=== PATIENT | male | born 1945 | race Caucasian/White ===

== ENCOUNTER 2016-09-24 20:59 | Emergency (ER) | payer OTHER ==
[~2016-09-24] VITALS: Ht 180.3 cm; Wt 86.2 kg
[~2016-09-24 20:59] MED LIST: 'TENORMIN50 MG; ALDACTONE PO; ALDACTONE25 M1 PO; ALDACTONE25 MG PO; ASPIRIN81 M1 PO; ATENOLOL100 MG PO; ATENOLOL25 MG PO; BUMETANIDE2 MG PO; BUMEX1 MG PO; BUSPIRONE HCL10 MG PO; BUSPIRONE HCL5 MG PO; BUSPIRONE5 MG PO; CHLOR-A-TAB4 MG PO; CLOPIDOGREL75 MG PO; CYCLOBENZAPRINE10 MG PO; DIABETA5 MG PO; FLEXERIL10 MG PO; GLUCOTROL5 MG PO; GLYBURIDE5 MG PO; ISOSORBIDE30 MG PO; KEPPRA500 MG; KEPPRA500 MG PO; LISINOPRIL5 MG PO; Lortab 5/500 501 TAB PO; METFORMIN ER500 MG; METFORMIN HCL1000 MG PO; METFORMIN HCL500 MG PO; METFORMIN500 MG PO; MIRTAZAPINE15 MG PO; MIRTAZAPINE30 M1; NITROGLYCERIN0.4 MG; OMEPRAZOLE DR20 M1 PO; PLAVIX75 MG PO; PRAVASTATIN SOD40 MG PO; PROCHLORPERAZIN10 MG PO; RANEXA500 MG PO; SIMVASTATIN80 MG PO; TRAMADOL HCL50 MG PO; TRAMADOL HYDROC50 MG PO; TRAZADONE HYDR100 MG PO; VICODIN 5/500 505 MG PO; ZOCOR80 MG PO
[2016-09-24] MEDS ORDERED: GLIPIZIDE10 M2 PO (21:21)
[2016-09-24] MEDS ORDERED: PRAVACHOL80 M1 PO (21:22)
[2016-09-24] MEDS ORDERED: TORSEMIDE20 MG PO (21:23)
[2016-09-24] MEDS ORDERED: METFORMIN1000 MG PO (21:23)
[2016-09-24] MEDS ORDERED: ZOLOFT25 MG PO (21:24)
[2016-09-24] MEDS ORDERED: HYDROXYZINE PAM50 MG PO (21:25)
[2016-09-24] MEDS ORDERED: ATENOLOL25 MG PO (21:26)
== END 2016-09-24 23:16 | disposition home or self-care (01) ==
LOC: ED 20:59
DX: S41.111A Laceration without foreign body of right upper arm, initial encounter (principal); R07.81 Pleurodynia; Z91.013 Allergy to seafood; Z91.041 Radiographic dye allergy status; Z88.6 Allergy status to analgesic agent; Z88.8 Allergy status to other drugs, medicaments and biological substances; Z79.899 Other long term (current) drug therapy; W01.0XXA Fall on same level from slipping, tripping and stumbling without subsequent striking against object, initial encounter; Y93.89 Activity, other specified; Y92.122 Bedroom in nursing home as the place of occurrence of the external cause; Y99.9 Unspecified external cause status

== ENCOUNTER 2017-01-24 09:36 | Inpatient (IN) | payer OTHER ==
[~2017-01-24] VITALS: Ht 175.2 cm; Wt 58.1 kg
--- NOTE | ~2017-01-24 | EKG ---
[place], [place] ELECTROCARDIOGRAM REPORT NAME: ZURDO MELO UNIT #: [id number] ROOM: [place] [id number] DOCTOR: LIZABETH WATSON,DAVI BIRTHDATE: [birth year] DOS: 01/26/2017 TIME: 0643 hours. Supraventricular tachycardia at 110 beats per minute. P waves are not discernible. There is incomplete left bundle branch block. Mild ST segment depression with T wave abnormality in V4-V6 and inverted T wave in 1 at aVL is suggestive of anterolateral wall ischemia. No previous tracing is available for comparison. DAVI BARONE MD CM:EKGRPT:ELECTROCARDIOGRAM REPORT [id number] DAVI BARONE MD
--- NOTE | ~2017-01-24 | EKG ---
[place], [place] ELECTROCARDIOGRAM REPORT NAME: ZURDO MELO UNIT #: [id number] ROOM: [id number] DOCTOR: DAVI BARONE MD BIRTHDATE: [birth year] DOS: 01/24/2017 TIME: 1007 hours. Normal sinus rhythm at 61 beats per minute. The tracing is within normal limits. No previous tracing is available for comparison. DAVI BARONE MD CM:EKGRPT:ELECTROCARDIOGRAM REPORT [id number] DAVI BARONE MD
[~2017-01-24 09:36] MED LIST changes: +GLIPIZIDE10 M2 PO; +HYDROXYZINE PAM50 MG PO; +METFORMIN1000 MG PO; +PRAVACHOL80 M1 PO; +TORSEMIDE20 MG PO; +ZOLOFT25 MG PO
[2017-01-24 09:54] VITALS: BP 100/60
[2017-01-24 10:03] LABS: BILIRUBIN NEGATIVE (NEGATIVE); BLOOD NEGATIVE (NEGATIVE); CLARITY CLEAR (CLEAR); COLOR YELLOW (YELLOW); GLUCOSE NEGATIVE (NEGATIVE); KETONE NEGATIVE (NEGATIVE); LEUKO ESTERASE NEGATIVE (NEGATIVE); NITRITE NEGATIVE (NEGATIVE); PH 5.5 (5.0-9.0); PROTEIN NEGATIVE (NEGATIVE); UROBILINOGEN 0.2 E.U./dl (0.2-1.0)
[2017-01-24 10:11] LABS: BASO # 0.1 10*3/uL (0.0-0.1); BASO % 0.6 % (0.0-1.0); EOS # 0.1 10*3/uL (0.0-0.4); EOS % 0.9 % (1.0-4.0); HEMATOCRIT 36.8 % (42.0-52.0); LYMPH # 1.8 10*3/uL (1.3-4.4); LYMPH % 17.2 % (27.0-41.0); MEAN CORPUSCULAR HGB CONC 32.6 g/dl (33.0-37.0); MEAN PLATELET VOLUME 9.5 fl (9.6-12.3); MONO # 0.7 10*3/uL (0.1-1.0); NEUT # 7.9 10*3/uL (2.3-7.9); PLATELET COUNT AUTOMATED 240 10*3/uL (130-400); RED CELL DISTRI WIDTH 14.4 % (0-14.5); WHITE BLOOD COUNT 10.6 10*3/uL (4.8-10.8)
[2017-01-24 10:17] LABS: RBC 0-2 rbc/hpf (0-2); URINE REFLEX COMMENT NO (NO); WBC 0-2 wbc/hpf (0-5)
[2017-01-24 10:26] LABS: INTERNATIONAL NORM RATIO 1.1 (2.0-3.5); PROTHROMBIN TIME 11.3 SECONDS (9.0-12.4)
[2017-01-24 10:33] LABS: ALBUMIN 3.9 gm/dl (3.1-4.5); ALKALINE PHOSPHATASE 95 U/L (45-117); BILIRUBIN, TOTAL 0.5 mg/dl (0.2-1.0); BUN 20 mg/dl (7-24); CARBON DIOXIDE 28 mmol/L (21-32); CHLORIDE 102 mmol/L (98-107); CKMB 1.8 ng/ml (0.5-3.6); CPK 115 U/L (39-308); EST GLOM FILT AFRICAN AMERICAN 51 ml/min; GLUCOSE 64 mg/dL (65-99); SGOT/AST 39 IU/L (3-35); SGPT/ALT 30 U/L (12-78); SODIUM 140 mmol/L (136-145); TOTAL PROTEIN 7.5 gm/dL (6.4-8.2)
[2017-01-24 10:34] LABS: TROPONIN I < 0.015 ng/ml (<0.045)
[2017-01-24 11:20] VITALS: BP 136/70
[2017-01-24 12:21] VITALS: BP 123/65
[2017-01-24] MEDS ORDERED: KEPPRA1000 MG PO (12:51)
[2017-01-24] MEDS ORDERED: TORSEMIDE20 MG PO (12:54)
[2017-01-24 16:00] VITALS: BP 96/40
[2017-01-24 20:00] VITALS: BP 123/72
[2017-01-25] VITALS: BP 127/77
[2017-01-25 06:43] LABS: BASO % 0.4 % (0.0-1.0); EOS # 0.1 10*3/uL (0.0-0.4); EOS % 0.7 % (1.0-4.0); HEMATOCRIT 37.5 % (42.0-52.0); HEMOGLOBIN 11.9 g/dl (14.0-18.0); LYMPH # 1.3 10*3/uL (1.3-4.4); LYMPH % 11.3 % (27.0-41.0); MEAN CORPUSCULAR HGB 30.4 pg (27.0-31.0); MEAN CORPUSCULAR HGB CONC 31.7 g/dl (33.0-37.0); MEAN PLATELET VOLUME 9.9 fl (9.6-12.3); MONO # 0.6 10*3/uL (0.1-1.0); MONO % 5.8 % (3.0-9.0); NEUT # 9.1 10*3/uL (2.3-7.9); NEUT % 81.4 % (47.0-73.0); PLATELET COUNT AUTOMATED 200 10*3/uL (130-400); RED BLOOD COUNT 3.91 10*6/uL (4.50-5.90); RED CELL DISTRI WIDTH 14.6 % (0-14.5); WHITE BLOOD COUNT 11.1 10*3/uL (4.8-10.8)
[2017-01-25 06:58] LABS: MEAN CELL VOLUME 95.9 fl (80.0-94.0)
[2017-01-25 07:12] LABS: ALBUMIN 3.6 gm/dl (3.1-4.5); BILIRUBIN, TOTAL 0.7 mg/dl (0.2-1.0); FREE T4 0.96 ng/dl (0.76-1.46); PHOSPHOROUS 4.5 mg/dL (2.5-4.9); POTASSIUM 4.6 mmol/L (3.5-5.1); TOTAL PROTEIN 7.6 gm/dL (6.4-8.2)
[2017-01-25 07:17] LABS: THYROID STIM HORMONE (HS) 2.7 uIU/ml (0.358-4.75)
[2017-01-25 07:20] LABS: VITAMIN D, 25-HYDROXY 17.8 ng/mL (30-100)
[2017-01-25 07:21] LABS: FOLIC ACID 15.02 ng/mL (>5.38)
[2017-01-25 08:00] VITALS: BP 106/56
[2017-01-25 12:00] VITALS: BP 118/83
[2017-01-25 16:00] VITALS: BP 103/60
[2017-01-25 20:00] VITALS: BP 92/57
[2017-01-26] VITALS (8 sets, daily range): BP systolic 56–114; BP diastolic 27–85
[2017-01-26 06:23] LABS: POTASSIUM 5.4 mmol/L (3.5-5.1)
[2017-01-26 06:24] LABS: HEMATOCRIT 38.7 % (42.0-52.0); HEMOGLOBIN 11.2 g/dl (14.0-18.0); MEAN CELL VOLUME 105.7 fl (80.0-94.0); MEAN CORPUSCULAR HGB 30.6 pg (27.0-31.0); MEAN CORPUSCULAR HGB CONC 28.9 g/dl (33.0-37.0); MEAN PLATELET VOLUME 10.1 fl (9.6-12.3); PLATELET COUNT AUTOMATED 362 10*3/uL (130-400); RED BLOOD COUNT 3.66 10*6/uL (4.50-5.90); WHITE BLOOD COUNT 26.8 10*3/uL (4.8-10.8)
[2017-01-26 06:52] LABS: HEMOGLOBIN A1c 5.8 % (4.8-5.6)
[2017-01-26 07:14] LABS: BURR CELLS MODERATE; LYMPHOCYTE # 1.1 10*3/uL (1.3-4.4); METAMYELOCYTES 2 % (0-0); MONOCYTE # 1.1 10*3/uL (0.1-1.0); NEUTROPHIL # 24.1 10*3/uL (2.3-7.9); NEUTROPHILS 90 % (47-73); PLATELET SUFFICIENCY NORMAL (NORMAL); ROULEAUX SLIGHT; TOTAL CELLS COUNTED 100 #CELLS
== END 2017-01-26 08:55 | disposition expired ==
LOC: ED 09:36 → 4E 11:10 → EDHOLD 11:10 → 4E 11:48 → ICCU 01-26 07:34
PROVIDERS: Emergency Medicine; Student in an Organized Health Care Education/Training Program
PROC: B54CZZA Ultrasonography of Left Lower Extremity Veins, Guidance (ICD-10-PCS; principal; 2017-01-26)
PROC: 06HN33Z Insertion of Infusion Device into Left Femoral Vein, Percutaneous Approach (ICD-10-PCS; principal; 2017-01-26)
DX: I21.4 Non-ST elevation (NSTEMI) myocardial infarction (principal); N17.0 Acute kidney failure with tubular necrosis; Z66 Do not resuscitate; S09.8XXA Other specified injuries of head, initial encounter; F41.9 Anxiety disorder, unspecified; K21.9 Gastro-esophageal reflux disease without esophagitis; I25.10 Atherosclerotic heart disease of native coronary artery without angina pectoris; I10 Essential (primary) hypertension; E86.0 Dehydration; G40.909 Epilepsy, unspecified, not intractable, without status epilepticus; R26.81 Unsteadiness on feet; Z51.5 Encounter for palliative care; W10.8XXA Fall (on) (from) other stairs and steps, initial encounter; E78.5 Hyperlipidemia, unspecified; E55.9 Vitamin D deficiency, unspecified; E11.649 Type 2 diabetes mellitus with hypoglycemia without coma; Z86.73 Personal history of transient ischemic attack (TIA), and cerebral infarction without residual deficits; Z91.013 Allergy to seafood; Z91.041 Radiographic dye allergy status; Z88.8 Allergy status to other drugs, medicaments and biological substances; Z95.1 Presence of aortocoronary bypass graft; Z95.5 Presence of coronary angioplasty implant and graft; Z80.9 Family history of malignant neoplasm, unspecified; Z83.3 Family history of diabetes mellitus; Z82.49 Family history of ischemic heart disease and other diseases of the circulatory system; Z79.82 Long term (current) use of aspirin; Z79.84 Long term (current) use of oral hypoglycemic drugs; Z79.899 Other long term (current) drug therapy; Z71.6 Tobacco abuse counseling; Z72.0 Tobacco use; Y93.89 Activity, other specified; Y92.89 Other specified places as the place of occurrence of the external cause; Y99.8 Other external cause status